=== PATIENT | female | born 1965 | race Two or more races ===

== ENCOUNTER 2017-08-23 10:00 | Inpatient (IN) | payer OTHER ==
[~2017-08-23] VITALS: Ht 154.9 cm; Wt 50.3 kg
[~2017-08-23 10:00] MED LIST: ATIVAN1 M1 PO; ATORVASTATIN CA10 MG PO; FORTAMET1000 MG PO; GABAPENTIN100 MG PO
[2017-08-23] MEDS ORDERED: ATIVAN0.5 MG PO (11:27)
[2017-08-31] MEDS ORDERED: DOCUSATE SODIU100 MG PO (09:14)
[2017-08-31] MEDS ORDERED: GABAPENTIN800 MG PO (09:14)
[2017-08-31] MEDS ORDERED: AMOX-CLAV 875-1 EACH PO (09:15)
[2017-08-31] MEDS ORDERED: PERCOCET 5-3251 EACH PO (09:16)
[2017-08-31] MEDS ORDERED: CLONAZEPAM1 MG PO (09:16)
== END 2017-08-31 16:20 | DRG 460 ==
LOC: O/R 08-30 05:23 → PED 08-30 05:23 → SURH 08-30 10:00 → PED 08-30 17:05
PROVIDERS: Orthopaedic Surgery Orthopaedic Surgery of the Spine
PROC: 0ST40ZZ Resection of Lumbosacral Disc, Open Approach (ICD-10-PCS; 2017-08-30)
PROC: 07DS3ZZ Extraction of Vertebral Bone Marrow, Percutaneous Approach (ICD-10-PCS; 2017-08-30)
PROC: 0SG30AJ Fusion of Lumbosacral Joint with Interbody Fusion Device, Posterior Approach, Anterior Column, Open Approach (ICD-10-PCS; principal; 2017-08-30 12:30)
PROC: 00NY0ZZ Release Lumbar Spinal Cord, Open Approach (ICD-10-PCS; 2017-08-30 12:30)
DX: M48.07 Spinal stenosis, lumbosacral region (principal); M43.17 Spondylolisthesis, lumbosacral region; M51.17 Intervertebral disc disorders with radiculopathy, lumbosacral region; M47.27 Other spondylosis with radiculopathy, lumbosacral region; E11.9 Type 2 diabetes mellitus without complications

== ENCOUNTER 2021-02-24 12:15 | Inpatient (IN) | payer OTHER ==
[~2021-02-24] VITALS: Ht 154.9 cm; Wt 52.6 kg
[~2021-02-24 12:15] MED LIST changes: +AMOX-CLAV 875-1 EACH PO; +ATIVAN0.5 MG PO; +CLONAZEPAM1 MG PO; +DOCUSATE SODIU100 MG PO; +GABAPENTIN800 MG PO; +PERCOCET 5-3251 EACH PO
[2021-02-24] MEDS ORDERED: [UNRECOGNIZED DRUG - OTHER] PO (15:36)
[2021-02-24] MEDS ORDERED: ZIPSOR25 MG PO (15:37)
[2021-02-27] MEDS ORDERED: COLACE100 MG PO (13:30)
[2021-02-27] MEDS ORDERED: NEURONTIN800 MG PO (13:30)
[2021-02-27] MEDS ORDERED: MEDROLPACK PO (13:30)
[2021-02-27] MEDS ORDERED: DIAZEPAM5 MG PO (13:30)
[2021-02-27] MEDS ORDERED: AMOX-CLAV 875-1 EACH PO (13:30)
[2021-02-27] MEDS ORDERED: PERCOCET 5-3251 EACH PO (13:30)
== END 2021-03-01 15:33 | disposition home or self-care (01) | DRG 455 ==
LOC: PED 02-27 06:20 → O/R 02-27 06:20 → SURH 02-27 12:15 → PED 02-27 17:00
PROVIDERS: ADMIT Orthopaedic Surgery Orthopaedic Surgery of the Spine; ATTEND Orthopaedic Surgery Orthopaedic Surgery of the Spine
PROC: 0SG00J1 Fusion of Lumbar Vertebral Joint with Synthetic Substitute, Posterior Approach, Posterior Column, Open Approach (ICD-10-PCS; 2021-02-27)
PROC: 07DR0ZZ Extraction of Iliac Bone Marrow, Open Approach (ICD-10-PCS; 2021-02-27)
PROC: 0SG00AJ Fusion of Lumbar Vertebral Joint with Interbody Fusion Device, Posterior Approach, Anterior Column, Open Approach (ICD-10-PCS; principal; 2021-02-27 13:30)
DX: M48.062 Spinal stenosis, lumbar region with neurogenic claudication (principal); M41.56 Other secondary scoliosis, lumbar region

== ENCOUNTER 2023-11-19 12:30 | Inpatient (IN) | payer OTHER ==
[~2023-11-19] VITALS: Ht 154.9 cm; Wt 50.8 kg
[~2023-11-19 12:30] MED LIST changes: +COLACE100 MG PO; +DIAZEPAM5 MG PO; +MEDROLPACK PO; +NEURONTIN800 MG PO; +ZIPSOR25 MG PO; +[UNRECOGNIZED DRUG - OTHER] PO
[2023-11-19] MEDS ORDERED: VIVLODEX10 MG PO (13:21)
[2023-11-19] MEDS ORDERED: GLIMEPIRIDE4 MG (13:22)
[2023-11-19] MEDS ORDERED: JENTADUETO XR1 EAC1 PO (13:22)
[2023-11-25] MEDS ORDERED: VANCOMYCIN HCL 1,000 MG VIAL ONE ×2 (05:56→07:22)
[2023-11-25] MEDS ORDERED: CEFAZOLIN SODIUM 1,000 MG VIAL ONE ×2 (05:57→11:16)
[2023-11-25] MEDS ORDERED: PERCOCET 5-3251 EACH PO (07:14)
[2023-11-25] MEDS ORDERED: MEDROLPACK PO (07:14)
[2023-11-25] MEDS ORDERED: COLACE100 MG PO (07:14)
[2023-11-25] MEDS ORDERED: ENALAPRILAT DIHYDRATE 1.25 MG/ML VIAL IV PRN (07:15)
[2023-11-25] MEDS ORDERED: 0.9 % SODIUM CHLORIDE 1,000 ML IV SCH (07:15)
[2023-11-25] MEDS ORDERED: PROMETHAZINE HCL 50 MG/ML AMPUL IM PRN (07:15)
[2023-11-25] MEDS ORDERED: HEMOSTATIC MATRIX WITH THROMBIN KIT TOP ONE (07:21)
[2023-11-25] MEDS ORDERED: METHYLPREDNISOLONE ACETATE 80 MG/ML VIAL ONE (07:25)
[2023-11-25] MEDS ORDERED: ISOPROPYL ALCOHOL 30 ML OUNCE TOP ONE (07:43)
[2023-11-25] MEDS ORDERED: METHYLPREDNISOLONE SOD SUCC 125 MG VIAL IV SCH (09:00)
[2023-11-25] MEDS ORDERED: GLIMEPIRIDE 4 MG TABLET PO SCH (09:00)
[2023-11-25] MEDS ORDERED: CEFAZOLIN SODIUM 1,000 MG in 0.9 % SODIUM CHLORIDE 50 ML IV SCH (09:00)
[2023-11-25] MEDS ORDERED: DOCUSATE SODIUM 100MG CAP PO SCH (09:00)
[2023-11-25] MEDS ORDERED: VANCOMYCIN HCL 1,000 MG in 0.9 % SODIUM CHLORIDE 250 ML IV SCH (09:00)
[2023-11-25] MEDS ORDERED: TAMSULOSIN HCL 0.4 MG CAP PO SCH (09:00)
[2023-11-25] MEDS ORDERED: FAMOtidine 20 MG TABLET PO SCH (09:00)
[2023-11-25] MEDS ORDERED: MORPHINE SULFATE 4 MG/ML VIAL IV SCH (09:00)
[2023-11-25] MEDS ORDERED: INSULIN LISPRO 1,000 UNIT/10 ML UNITS SUBCUTANEO PRN (11:15)
[2023-11-25] MEDS ORDERED: DEXTROSE 50 % IN WATER 0.5 G/ML DISP.SYRIN IV PRN (11:15)
[2023-11-25] MEDS ORDERED: METHYLPREDNISOLONE SOD SUCC 125 MG VIAL IV ONE ×2 (14:45)
[2023-11-26] MEDS ORDERED: SODIUM CHLORIDE 0.45 % 1,000 ML IV SCH
[2023-11-26] MEDS ORDERED: OxyCODONE HCL/APAP UD (PERCOCET) PO PRN (06:01)
== END 2023-11-26 12:46 | disposition home or self-care (01) | DRG 473 ==
LOC: O/R 11-25 05:06 → SURH 11-25 07:00 → PED 11-25 10:53 → SURH 11-25 12:30 → PED 11-26 12:46
PROVIDERS: ADMIT Orthopaedic Surgery Orthopaedic Surgery of the Spine; ATTEND Orthopaedic Surgery Orthopaedic Surgery of the Spine
PROC: 0RT30ZZ Resection of Cervical Vertebral Disc, Open Approach (ICD-10-PCS; 2023-11-25)
PROC: 07DS0ZZ Extraction of Vertebral Bone Marrow, Open Approach (ICD-10-PCS; 2023-11-25)
PROC: 4A1104G Monitoring of Peripheral Nervous Electrical Activity, Intraoperative, Open Approach (ICD-10-PCS; 2023-11-25)
PROC: 0RG20A0 Fusion of 2 or more Cervical Vertebral Joints with Interbody Fusion Device, Anterior Approach, Anterior Column, Open Approach (ICD-10-PCS; principal; 2023-11-25 07:00)
DX: M50.021 Cervical disc disorder at C4-C5 level with myelopathy (principal); M50.022 Cervical disc disorder at C5-C6 level with myelopathy; M50.023 Cervical disc disorder at C6-C7 level with myelopathy; M48.02 Spinal stenosis, cervical region; M24.29 Disorder of ligament, other specified site; E11.9 Type 2 diabetes mellitus without complications; Z79.84 Long term (current) use of oral hypoglycemic drugs